=== PATIENT | female | born 1955 | race Hispanic/Latino ===

== ENCOUNTER → 2021-08-26 | Day surgery (SDC) | payer OTHER ==
[2021-08-24 10:50] LABS: BASOPHILS % 0.4 % (0.0-1.0); EOSINOPHILS # (AUTO) 0.1 (0.0-0.4); EOSINOPHILS % 0.7 % (0.0-6.0); HEMATOCRIT 38.4 % (34.2-44.1); HEMOGLOBIN 12.9 g/dL (12.0-16.0); LYMPHOCYTES # (AUTO) 2.3 (1.0-3.2); LYMPHOCYTES % 31.1 % (18.0-39.1); MEAN CORPUSCULAR HEMOGLOBIN 29.8 pg (28-32); MEAN CORPUSCULAR HGB CONC 33.6 g/dL (31-35); MEAN CORPUSCULAR VOLUME 88.7 fL (81-99); MONOCYTES # (AUTO) 0.5 (0.2-0.8); MONOCYTES % 6.3 % (4.4-11.3); NEUTROPHILS # (AUTO) 4.5 (2.1-6.9); NEUTROPHILS % 61.1 % (38.7-80.0); PLATELET COUNT 283 x10e3/uL (140-360); RED BLOOD COUNT 4.33 x10e6/uL (3.6-5.1); RED CELL DISTRIBUTION WIDTH 13.2 % (11.7-14.4)
[~2021-08-26] MED LIST: AMITRIPTYLINE H10 MG PO; FLECTOR1 EACH TD; GLIPIZIDE5 MG PO; LISINOPRIL2.5 MG PO; LYRICA75 MG PO; METFORMIN HCL500 MG PO; SIMVASTATIN20 MG PO
[2021-08-26 10:00] VITALS: BP 107/51
== END | disposition home or self-care (01) ==
LOC: OR 06:38
PROVIDERS: ATTEND Internal Medicine Gastroenterology
DX: Z12.11 Encounter for screening for malignant neoplasm of colon (principal); K63.5 Polyp of colon; Q27.33 Arteriovenous malformation of digestive system vessel; K64.8 Other hemorrhoids; K21.9 Gastro-esophageal reflux disease without esophagitis; I10 Essential (primary) hypertension; Z79.84 Long term (current) use of oral hypoglycemic drugs
CPT/HCPCS: 36415; 45384; 85025; 93005; U0002

== ENCOUNTER → 2023-12-28 | Day surgery (SDC) | payer MEDICARE, OTHER ==
[2023-10-03 08:53] LABS: BASOPHILS % 0.2 % (0.0-1.0); HEMATOCRIT 37.4 % (34.2-44.1); HEMOGLOBIN 13.1 g/dL (12.0-16.0); LYMPHOCYTES # (AUTO) 1.3 (1.0-3.2); LYMPHOCYTES % 11.7 % (18.0-39.1); MEAN CORPUSCULAR HEMOGLOBIN 30.3 pg (28-32); MEAN CORPUSCULAR VOLUME 86.6 fL (81-99); MONOCYTES # (AUTO) 0.6 (0.2-0.8); MONOCYTES % 5.2 % (4.4-11.3); NEUTROPHILS # (AUTO) 9.5 (2.1-6.9); NEUTROPHILS % 82.4 % (38.7-80.0); PLATELET COUNT 279 x10e3/uL (140-360); RED BLOOD COUNT 4.32 x10e6/uL (3.6-5.1); RED CELL DISTRIBUTION WIDTH 12.2 % (11.7-14.4); WHITE BLOOD COUNT 11.47 x10e3/uL (4.8-10.8)
[2023-12-25 10:19] LABS: BASOPHILS # (AUTO) 0.1 (0.0-0.1); BASOPHILS % 0.6 % (0.0-1.0); EOSINOPHILS # (AUTO) 0.1 (0.0-0.4); EOSINOPHILS % 1.1 % (0.0-6.0); HEMATOCRIT 37.5 % (34.2-44.1); HEMOGLOBIN 12.4 g/dL (12.0-16.0); LYMPHOCYTES # (AUTO) 2.3 (1.0-3.2); LYMPHOCYTES % 28.8 % (18.0-39.1); MEAN CORPUSCULAR HEMOGLOBIN 30.4 pg (28-32); MEAN CORPUSCULAR HGB CONC 33.1 g/dL (31-35); MEAN CORPUSCULAR VOLUME 91.9 fL (81-99); MONOCYTES # (AUTO) 0.6 (0.2-0.8); MONOCYTES % 6.9 % (4.4-11.3); PLATELET COUNT 247 x10e3/uL (140-360); RED BLOOD COUNT 4.08 x10e6/uL (3.6-5.1); RED CELL DISTRIBUTION WIDTH 12.3 % (11.7-14.4); WHITE BLOOD COUNT 7.99 x10e3/uL (4.8-10.8)
[~2023-12-28] MED LIST changes: +ACTOS15 MG PO; +GARLIC1000 MG; +LACTATED RINGER'S 1,000 ML ONE; +SLOW-MAG64 MG PO; +VITAMIN C1000 MG PO; +VITAMIN D31 ML; +ZINC
[2023-12-28 09:30] VITALS: TEMP 97.5
[2023-12-28 09:54] VITALS: BP 120/72; PULSE 76; RESP 18; O2SAT 98
== END | disposition home or self-care (01) ==
LOC: OR 06:26
PROVIDERS: ATTEND Internal Medicine Gastroenterology
DX: K29.50 Unspecified chronic gastritis without bleeding (principal); B96.81 Helicobacter pylori [H. pylori] as the cause of diseases classified elsewhere; K31.A12 Gastric intestinal metaplasia without dysplasia, involving the body (corpus); K64.8 Other hemorrhoids; Z01.810 Encounter for preprocedural cardiovascular examination; Z01.812 Encounter for preprocedural laboratory examination; Z79.84 Long term (current) use of oral hypoglycemic drugs; Z79.899 Other long term (current) drug therapy
CPT/HCPCS: 36415 ×3; 43239; 45378; 82948; 85025 ×2; 88305; 93005; J7121; 88312